=== PATIENT | male | born 1970 | race Caucasian/White ===

== ENCOUNTER 2018-01-16 10:18 | Emergency (ER) | payer OTHER ==
[~2018-01-16] VITALS: Ht 170.2 cm; Wt 81.7 kg
--- NOTE | 2018-01-17 19:40 | EKG ---
[facility] [address] [facility] [place] [address] Signed Normal sinus rhythm Rightward axis Borderline ECG No previous ECGs available Confirmed by MIHAI SCHROEDER MD ([id number]) on 01/17/2018 7:40:14 PM Electronically Signed By: MIHAI SCHROEDER MD 01/17/181939 PATIENT NAME: KM ROSENBERG Electrocardiogram DATE OF : 70 PHYSICIAN: MIHAI SCHROEDER MD REPORT #: [id number] REPORT IS CONFIDENTIAL AND NOT TO BE RELEASED WITHOUT AUTHORIZATION
== END 2018-01-16 11:24 | disposition left against medical advice (07) ==
LOC: ED 10:18
DX: R55 Syncope and collapse (principal); E86.0 Dehydration; F43.10 Post-traumatic stress disorder, unspecified; F17.200 Nicotine dependence, unspecified, uncomplicated
CPT/HCPCS: 93005; 93010; 99284; J7030

== ENCOUNTER 2025-02-01 22:04 | Emergency (ER) | payer OTHER ==
[~2025-02-01] VITALS: Ht 170.2 cm; Wt 102.4 kg
--- OUTSIDE RECORDS SUMMARY | 2025-02-01 22:10 | XMS ---
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 E.D. VISIT COUNT (12 MO.) 1 DIONICIO Felix TOTAL 1 NOTE: Visits indicate total known visits. ED/UCC VISIT TRACKING (12 MO.) 02/01/2025 22:04 DIONICIO [facility] OR TYPE: Emergency COMPLAINT: - CHEST PAIN INPATIENT VISIT TRACKING (12 MO.) No inpatient visits to display in this time frame [email or web address]
[2025-02-01] MEDS ORDERED: LORazepam 2 MG/ML VIAL IV ONE (22:15)
[2025-02-01 22:21] LABS: BASOPHILS 0.7 % (0.2-1.2); EOSINOPHILS 1.5 % (0.8-7.0); LYMPHOCYTES 27.9 % (21.8-53.1); MCH 28.5 PG (25.7-32.2); MCHC 33.0 g/dL (32.3-36.5); MCV 86.5 fL (79.0-92.2); MONOCYTES 9.3 % (5.3-12.2); NEUTROPHILS 59.7 % (34.0-67.9); RBC 5.47 M/uL (4.63-6.08)
[2025-02-01 22:35] LABS: INR 1.03 (0.80-1.30); PROTIME 13.1 Sec (11.2-14.2)
[2025-02-01 22:44] LABS: ALT (SGPT) 50.0 U/L (14-59); AST (SGOT) 29.0 U/L (15-37); GLOMERULAR FILTRATION RATE,EST 77.0 mL/min (>60); PROTEIN, TOTAL 7.7 g/dL (6.4-8.2); UREA NITROGEN 21.0 mg/dL (7-18)
[2025-02-02] MEDS ORDERED: CYCLOBENZAPRINE10 MG PO (00:27)
[2025-02-02] MEDS ORDERED: CYCLOBENZAPRINE HCL 10 MG HOME.PACK PO ONE (00:30)
[2025-02-02 00:59] VITALS: BP 142/91
--- NOTE | 2025-02-02 21:16 | EKG ---
[facility] [address] [facility] [place] [address] Signed Normal sinus rhythm Normal ECG When compared with ECG of 16-JAN-2018 10:41, No significant change was found Confirmed by Loyd Mosquera MD () on 02/02/2025 9:15:57 PM Electronically Signed By: LOYD MOSQUERA MD 02/02/252115 PATIENT NAME: KM ROSENBERG Electrocardiogram DATE OF : 70 PHYSICIAN: LOYD MOSQUERA MD REPORT #: [id number] REPORT IS CONFIDENTIAL AND NOT TO BE RELEASED WITHOUT AUTHORIZATION
== END 2025-02-02 01:00 | disposition home or self-care (01) ==
LOC: ED 22:04
PROVIDERS: Family Medicine
DX: F41.9 Anxiety disorder, unspecified (principal); R07.89 Other chest pain; F43.10 Post-traumatic stress disorder, unspecified; F17.200 Nicotine dependence, unspecified, uncomplicated
CPT/HCPCS: 36415; 71045; 80053; 83735; 83880; 84484; 85025; 85610; 93005; 93010; 96374; 99285-25; J2060